=== PATIENT | male | born 1960 | race Caucasian/White ===

== ENCOUNTER 2019-08-21 07:37 | Inpatient (IN) | payer BC ==
[~2019-08-21] VITALS: Ht 160 cm; Wt 57.3 kg
[2019-08-21] MEDS ORDERED: CIPRO500 MG PO (07:53)
[2019-08-21] MEDS ORDERED: ALBUTEROL SULF8.5 GM INH (07:53)
[2019-08-21] MEDS ORDERED: FLAGYL500 MG PO (07:53)
[2019-08-21] MEDS ORDERED: PROTONIX40 MG PO (07:54)
[2019-08-21 08:42] LABS: HEMATOCRIT 30.7 % (42.0-54.0); HEMOGLOBIN 10.6 g/dL (13.5-17.5); MCH 30.3 pg (26.0-34.0); MCHC 34.5 g/dL (31.0-37.0); MCV 87.7 fL (80.0-100.0); MEAN PLATELET VOLUME 9.4 fL (7.4-10.4); PLATELET COUNT 650 10x3/uL (130-400); RDW 14.8 % (11.5-14.5); WBC 21.1 10x3/uL (4.8-10.8)
[2019-08-21 09:02] LABS: LYMPHOCYTES 6 % (15-50); MONOCYTES 6 % (2-11); NEUTROPHILS 88 % (40-80); PLATELET ESTIMATE INCREASED
[2019-08-21 09:08] LABS: BILIRUBIN NEGATIVE (NEGATIVE); GLUCOSE NEGATIVE (NEGATIVE); KETONE NEGATIVE (NEGATIVE); NITRITE NEGATIVE (NEGATIVE); SPECIFIC GRAVITY 1.005 (1.005-1.020); UROBILINOGEN NORMAL (NORMAL)
[2019-08-21 09:29] LABS: ALBUMIN 1.9 g/dL (3.4-5.0); ALKALINE PHOSPHATASE 154 U/L (30-120); ALT (SGPT) 69 U/L (10-68); BILIRUBIN - TOTAL 2.98 mg/dL (0.2-1.3); CALC OSMOLALITY 260 mosm/kg (275-300); CARBON DIOXIDE 33.8 mmol/L (21.0-32.0); CHLORIDE - SERUM 91 mmol/L (98-107); CREATINE KINASE 30 UL (21-232); CREATININE - SERUM 0.9 mg/dL (0.6-1.3); GLUCOSE 119 mg/dL (74-106); LIPASE 282 U/L (73-393); MAGNESIUM - SERUM 1.9 mg/dL (1.8-2.4); PRO BNP 3467 pg/mL (0-125); PROTEIN - SERUM 5.8 g/dL (6.4-8.2); SODIUM 131 mmol/L (136-145); UREA NITROGEN 4 mg/dL (7-18); eGFR NON AFRICAN AMERICAN > 90 mL/min (90-120)
[2019-08-21 09:30] LABS: FERRITIN 1243 ng/mL (3-244); TROPONIN-I < 0.017 ng/mL (0.000-0.060)
[2019-08-21 09:31] LABS: POTASSIUM - SERUM 2.7 mmol/L (3.5-5.1)
[2019-08-21 09:38] LABS: C-REACTIVE PROTEIN 27.7 mg/dL (0.0-0.9)
--- NOTE | 2019-08-21 12:08 | NUR ---
ATTEMPTED TO CALL REPORT, RN IN ROOM WITH COVED PATIENT WILL RETURN CALL.
[2019-08-21 12:35] VITALS: BP 158/83
[2019-08-21 13:14] LABS: % SATURATION 4 % (15-55); IRON 8 ug/dl (35-150); TOTAL IRON BIND CAPACITY 177 ug/dl (260-445); UNSAT IRON BIND CAPACITY 169 ug/dl (150-375)
--- NOTE | 2019-08-21 13:28 | NUR ---
RECEIVED PT TO ROOM. PLACED ON ISOLATION FOR POSSIBLE COVID 19. PT A/O X4, RESP EVEN AND NONLABORED ON RA. 2LPRN AT BEDSIDE IF PT SHOULD NEED IT. ORIENTED PT TO ROOM AND CALL LIGHT. WILL ASSESS PT AND START PLAN OF CARE.
--- NOTE | 2019-08-21 13:40 | NUR ---
LEVAQUIN 750 MG COMPLETE
[2019-08-21 14:13] VITALS: BP 162/84
[2019-08-21 14:27] VITALS: Ht 160 cm; Wt 57.3 kg
[2019-08-21 14:38] LABS: APTT 45.1 SECONDS (22.8-39.4); INR 1.74 (0.85-1.17); PROTIME 20.2 SECONDS (11.6-15.0)
--- NOTE | 2019-08-21 19:30 | NUR ---
PT IN BED, AAO X 3, RESP EVEN AND UNLABORED. NO DISTRESS NOTED, NO CONCERNS OR WANTS NOTED AT THIS TIME.
[2019-08-21 20:09] VITALS: BP 147/90
[2019-08-22 00:17] VITALS: BP 154/84
[2019-08-22 05:23] VITALS: BP 132/64
[2019-08-22 06:06] LABS: BASOPHILS 0.4 % (0-2); EOSINOPHILS 1.3 % (0-7); HEMATOCRIT 27.9 % (42.0-54.0); HEMOGLOBIN 9.5 g/dL (13.5-17.5); IMMATURE GRANULOCYTES 1.8 % (0-5); LYMPHOCYTES 7.2 % (15-50); MCH 29.9 pg (26.0-34.0); MCHC 34.1 g/dL (31.0-37.0); MCV 87.7 fL (80.0-100.0); MEAN PLATELET VOLUME 9.2 fL (7.4-10.4); MONOCYTES 10.4 % (2-11); NEUTROPHILS 78.9 % (40-80); PLATELET COUNT 691 10x3/uL (130-400); RBC 3.18 10x6/uL (4.20-6.10); RDW 14.6 % (11.5-14.5); WBC 19.6 10x3/uL (4.8-10.8)
[2019-08-22 06:36] LABS: ALBUMIN 1.6 g/dL (3.4-5.0); ALKALINE PHOSPHATASE 132 U/L (30-120); BILIRUBIN - TOTAL 2.48 mg/dL (0.2-1.3); CALC OSMOLALITY 254 mosm/kg (275-300); CALCIUM 7.4 mg/dL (8.5-10.1); CARBON DIOXIDE 30.1 mmol/L (21.0-32.0); CHLORIDE - SERUM 93 mmol/L (98-107); CREATININE - SERUM 0.8 mg/dL (0.6-1.3); FERRITIN 930 ng/mL (3-244); GLUCOSE 122 mg/dL (74-106); MAGNESIUM - SERUM 1.8 mg/dL (1.8-2.4); PROTEIN - SERUM 5.2 g/dL (6.4-8.2); SODIUM 128 mmol/L (136-145); TROPONIN-I < 0.017 ng/mL (0.000-0.060); UREA NITROGEN 4 mg/dL (7-18); eGFR NON AFRICAN AMERICAN > 90 mL/min (90-120)
[2019-08-22 06:49] LABS: ALT (SGPT) 44 U/L (10-68)
[2019-08-22 06:50] LABS: POTASSIUM - SERUM 2.8 mmol/L (3.5-5.1)
--- NOTE | 2019-08-22 07:28 | NUR ---
REPORT RECEIVED FROM FENDER MECHANIC AND PATIENT CARE ASSUMED. PATIENT LAYING IN BED ON BACK AWAKE, ALERT AND ORIENTED X 4. PATIENT DENIES ANY NEEDS OR PAIN. WILL CONTINUE WITH PLAN OF CARE. SR UP X 2 BED IN LOW POSITION AND CALL LIGHT IN REACH.
--- NOTE | 2019-08-22 09:00 | NUR ---
CALLED TO PATIENTS ROOM. PATIENT SITTING UP IN BED AWAKE, ALERT AND ORIENTED X 4. PATIENT STATES THAT HE WANTS TO BE DC AND GO HOME. PATIENT REFUSES ALL MEDS AND PATIENT TOOK OFF TELEMETRY UNIT. PATIENT REQUESTS THAT IV BE DCD. EXPLAINED THAT IV NEEDS TO BE LEFT IN FOR SAFETY UNTIL DR SEQUEIRA ROUNDS. PATIENT AGREED. PATIENT STATES THAT HE IS DONE WITH TREATMENT AND THAT HE DOES NOT HAVE LONG TO LIVE AND HE WANTS TO BE HOME WITH FAMILY. SEDRICK GONZALEZ ON UNIT AND INFORMED OF PATIENT STATUS. SEDRICK GONZALEZ STATED SHE WILL INFORM DR SEQUEIRA AND HE WILL SEE PATIENT.
--- NOTE | 2019-08-22 12:15 | NUR ---
DR SEQUEIRA VISITED WITH PATIENT. PATIENT IS GOING TO LEAVE AMA . DR INSTRUCTED THIS NURSE TO HAVE PATIENT SIGN AMA FORM.
[2019-08-22] MEDS ORDERED: AZITHROMYCIN500 MG PO (12:21)
[2019-08-22] MEDS ORDERED: FOLIC ACID1 MG PO (12:21)
[2019-08-22] MEDS ORDERED: LEVAQUIN750 MG PO (12:21)
--- NOTE | 2019-08-22 12:49 | NUR ---
PATIENT LEAVING AMA. I GAVE PRIMARY NURSE IVANA GROSS PAPERWORK FOR COVID-19 TO BE GIVEN TO PATIENT AND SIGNED.
--- NOTE | 2019-08-22 13:30 | NUR ---
PATIENT READ AMA FORM AND SIGNED FORM. IV DCD WITHOUT DIFFICULTY WITH ENTIRE CATHETER INTACT. PRESSURE DRSG APPLIED. WRITTEN AND VERBAL INSTRUCTION GIVEN TO PATIENT. PATIENT VERBALIZED UNDERSTANDING AND SIGNED INSTRUCTIONS. PATIENT TO FRONT DOOR VIA WC COVERED WITH A SHEET ACCOMPANIED BY THIS NURSE IN FULL PPE. PATIENT TO PRIVATE VEHICLE DRIVEN BY PATIENTS .
[2019-08-23 13:08] LABS: PROCALCITONIN 0.41 ng/mL (0.00-0.08)
--- NOTE | 2019-08-23 15:55 | NUR ---
ADVISED PT OF LAB RESULTS FOR COVID TESTING.
== END 2019-08-22 12:49 | disposition left against medical advice (07) | DRG 193 ==
LOC: D.ER 07:37 → D.M2 11:10
PROVIDERS: Family Medicine; Internal Medicine Hematology & Oncology; ADMIT Internal Medicine Nephrology; ATTEND Internal Medicine Nephrology
DX: J18.9 Pneumonia, unspecified organism (principal); E43 Unspecified severe protein-calorie malnutrition; I50.31 Acute diastolic (congestive) heart failure; C25.9 Malignant neoplasm of pancreas, unspecified; D68.9 Coagulation defect, unspecified; N17.9 Acute kidney failure, unspecified; F17.203 Nicotine dependence unspecified, with withdrawal; E87.1 Hypo-osmolality and hyponatremia; N40.0 Benign prostatic hyperplasia without lower urinary tract symptoms; K21.9 Gastro-esophageal reflux disease without esophagitis; E87.6 Hypokalemia